=== PATIENT | male | born 1950 | race Caucasian/White ===

== ENCOUNTER → 2016-07-15 | Outpatient (CLI) | payer OTHER, MEDICAID | LOC: FIMAGING 11:39 | PROVIDERS: ATTEND Internal Medicine Cardiovascular Disease | DX: J44.9 Chronic obstructive pulmonary disease, unspecified (principal) ==

== ENCOUNTER → 2016-12-01 | Outpatient (CLI) | payer OTHER, MEDICAID | LOC: GIMAGING 11:57 | PROVIDERS: ATTEND Physician Assistant | DX: M17.11 Unilateral primary osteoarthritis, right knee (principal) | CPT/HCPCS: 73560-PO ==

== ENCOUNTER 2018-04-21 13:25 | Inpatient (IN) | payer OTHER, MEDICAID ==
[2018-04-21] MEDS ORDERED: ACETAMINOPHEN 325 MG TAB PO PRN (18:26)
[2018-04-21 19:20] LABS: PLATELET COUNT 148 10^3/uL (150-400)
--- NOTE | 2018-04-21 19:33 | GHP ---
[f rep st] HISTORY AND PHYSICAL CHIEF COMPLAINT: Passed out. HISTORY OF PRESENT ILLNESS: This is a 68-year-old male with history of mitral valve disease, AICD, r uptured AAA, NV, and CABG who was brought to the emergency department after his found him slumpe d over on the couch at 12:30 today. Patient does not recall what happened. His found him with his eyes rolled back in his head with a blue appearance. It took him approximately 5 minutes took co me to, at which time, he was confused and disoriented. There was no loss of control of his bowel or his bladder. He has had no previous episodes like this. PAST MEDICAL HISTORY: Ruptured triple AAA, Elizabeth, CABG, AICD placement, mitral valve disease, left leg ORIF. HOME MEDICATIONS: Are unavailable at this time of dictation. ALLERGIES: Penicillin. SOCIAL HISTORY: Patient lives in [place] with his . His primary care per provider is Dr. Delonte Mora. He still smokes 5 cigarettes per day. He denies any alcohol use. FAMILY HISTORY: Significant for lung cancer in his mother and NV in his father who at ag e 69. REVIEW OF SYSTEMS: Comprehensive 10-point review of systems was done and is negative, except for as mentioned in the HPI. PHYSICAL EXAM: VITAL SIGNS: Blood pressure 120/79, pulse 73, respiratory rate 15, O2 saturation 93% on room air, temperature afebrile. GENERAL: No acute distress. HEAD: Normocephalic, atraumatic. EYES: PERRLA. Sclerae anicteric. MOUTH: Moist mucous membranes. NECK: Supple. No lymphadenop athy. CARDIOVASCULAR: S1, S2. There is a systolic murmur. There is no JVD. There is no lower ext remity edema. PULMONARY: Lungs are clear. No wheezes, rales, or rhonchi. ABDOMEN: Soft, nontende r, nondistended. No guarding or rebound tenderness. Normoactive bowel sounds. EXTREMITIES: No clu bbing or cyanosis. NEURO: Cranial nerves 2 through 12 grossly intact. No focal motor or sensory de ficits. SKIN: Clear. No rashes. DIAGNOSTICS: WBC is 8.8, hemoglobin 13.7, hematocrit 42.1, platelets 148. Sodium 137, potassium 4.4 , chloride 103, CO2 26, BUN 15, creatinine 1.2 glucose 118. Troponin less than 0.012. EKG, which I visualized and personally interpreted, shows atrial paced rhythm. No acute ischemic argenis nges. Chest x-ray was done, but I was unable to view it at the time of this dictation since the PAC system is down. ASSESSMENT: This is a 68-year-old male with known mitral valve disease, coronary artery disease, sta tus post coronary artery bypass graft, and abdominal aortic aneurysm repair presenting with acute syn copal episode of unclear etiology. PLAN: The patient will be placed on observation where he will be monitored on telemetry. I have ask ed Cardiology to consult and interrogate his AICD, as well as obtain an echocardiogram to further janak luate his mitral valve. The patient requests to be DNR status. He may ultimately want to leave the hospital against medical advice. At the time of this dictation, he is currently discussing this with his who does not fe el comfortable taking him home. /[id number]/MODL
[2018-04-21 20:45] LABS: INR 1.09 (0.83-1.16); PROTIME(PATIENT) 13.7 SEC (12.0-15.0)
[2018-04-21] MEDS: oxyCODONE IR 5 MG TAB PO SCH (21:03)
[2018-04-21] MEDS: ATORVASTATIN CALCIUM 20 MG TAB PO SCH (21:04)
[2018-04-21] MEDS: GABAPENTIN 300 MG CAP PO SCH (21:04)
[2018-04-21] MEDS: hydrALAZINE 25 MG TAB PO SCH (21:13)
[2018-04-21 23:12] LABS: CREATINE KINASE 147 IU/L (0-224)
[2018-04-22] MEDS: oxyCODONE IR 5 MG TAB PO SCH ×5 (01:23→21:02)
[2018-04-22 04:37] LABS: PLATELET COUNT 126 10^3/uL (150-400)
--- NOTE | 2018-04-22 08:08 | EDPHY ---
H & P Stated Complaint: SYNCOPE Time Seen by Provider: 04/21/18 13:30 HPI/ROS: CHIEF COMPLAINT: Syncope HISTORY OF PRESENT ILLNESS: The patient presents to the ED after an episode of syncope at home. The patient reportedly was found by his slumped over unresponsive with blue lips at noon today. Patient had no antecedent chest pain , palpitations or shortness of breath. The patient reportedly came to fairly quickly although he did seem to be somewhat fatigued and confused after the event. The patient currently denies any acute numbness, weakness, headache, chest pain or difficulty breathing. The patient does have a history of an AICD. He does not have any sensation that he received shock from the device. Prior to the development of the symptoms the patient has been well. He is not had any recent fever, cough or dysuria. He is troubled by chronic neck pain which may have been acutely worse earlier today. REVIEW OF SYSTEMS: A comprehensive 10 point review of systems is otherwise negative aside from elements mentioned in the history of present illness. Source: Patient - Personal History Current Tetanus/Diphtheria Vaccine: Yes Current Tetanus Diphtheria and Acellular Pertussis (TDAP): Yes Tetanus Vaccine Date: 2008 - Medical/Surgical History Hx Asthma: No Hx Chronic Respiratory Disease: No Hx Diabetes: No Hx Cardiac Disease: Yes Hx Renal Disease: Yes Hx Cirrhosis: No Hx Alcoholism: No Hx HIV/AIDS: No Hx Splenectomy or Spleen Trauma: No Other PMH: medical Acute renal, HTN, ruptured Aortic aneuysm, [place] x3, CAD, mITRAL VALVE REGURGITATION, CARDIOMYOPATHY, iSChEMIC, Dyslipidemia. surgery Pacemaker, bypass surgery - Social History Smoking Status: Light smoker - Physical Exam Exam: General Appearance: Elderly male, somewhat deconditioned Eyes: Pupils equal and round no pallor or injection ENT, Mouth: Dry mucous membranes Respiratory: There are no retractions, lungs are clear to auscultation, permanent pacemaker on chest wall Cardiovascular: Regular rate and rhythm Gastrointestinal: Abdomen is soft and nontender, no masses, bowel sounds normal Neurological: A&O, normal motor function, normal sensory exam, normal cranial nerves Skin: Warm and dry, no rashes Musculoskeletal: Neck is supple nontender Extremities: symmetrical, full range of motion Psychiatric: Patient is oriented X 3, there is no agitation Constitutional: Initial Vital Signs Temperature (C) 36.5 C 04/21/18 13:25 Heart Rate 76 04/21/18 13:25 Respiratory Rate 15 04/21/18 13:25 Blood Pressure 120/79 04/21/18 13:25 O2 Sat (%) 93 04/21/18 13:25 O2 Delivery Mode Room Air Allergies/Adverse Reactions: Penicillins Allergy (Unknown, Verified 04/21/18 17:20) Hives lorazepam [From Ativan] Allergy (Verified 12/23/13 22:02) agitation Home Medications: Medication Instructions Recorded Atorvastatin Calcium 20 mg PO HS 04/21/18 DULoxetine [Cymbalta 60 MG (*)] 60 mg PO DAILY 04/21/18 Gabapentin [Neurontin 300 MG (*)] 600 mg PO HS 04/21/18 Herbals/Supplements -Info Only 1 ea PO DAILY 04/21/18 Nebivolol HCl [Bystolic 5 mg (*)] 5 mg PO DAILY 04/21/18 hydrALAZINE [Apresoline] 25 mg PO BID 04/21/18 oxyCODONE IR [Oxycodone Ir (*)] 10 mg PO Q4H 04/21/18 traZODone HCL [Trazodone HCl] 150 mg PO HS 04/21/18 Medical Decision Making - Diagnostics EKG Interpretation: EKG: Complete interpretation has been separately recorded in the [employer] archive. Summary impression: Av paced rhythm, no ischemic changes noted Imaging Results: Chest x-ray, two view: Images reviewed by myself, negative for cardiomegaly, heart failure or other acute abnormality. ED Course/Re-evaluation: The patient presents the emergency department after a episode of syncope at home which resulted in some unresponsiveness and reported facial cyanosis. The patient is neurologically intact in the emergency department. He is hemodynamically stable. He is essentially without complaints. Workup is unrevealing for evidence of an obvious arrhythmia or myocardial infarction. The patient has no clinical evidence of a stroke. The patient has a number of comorbidities. It is certainly possible he is had some arrhythmia. By report cardiology is following his pacemaker as his battery is nearing the end of its life. The patient will be admitted to the hospital for observation in the setting of his syncope in comorbidities. Consultation is made with the hospitalist service. I discussed the case with Dr. Montemayor who will admit the patient this evening. Differential Diagnosis: Differential diagnosis considered includes vasovagal episode, stroke, TIA, arrhythmia, myocardial infarction, severe metabolic derangement, renal failure, dehydration - Data Points Laboratory Results: Laboratory Results 04/21/18 13:47 04/21/18 13:47 04/21/18 13:47 Sodium 137 mEq/L mEq/L (135-145) Potassium 4.4 mEq/L mEq/L (3.5-5.2) Chloride 103 mEq/L mEq/L (97-110) Carbon Dioxide 26 mEq/l mEq/l (22-31) Anion Gap 8 mEq/L mEq/L (6-14) BUN 15 mg/dL mg/dL (7-23) Creatinine 1.2 mg/dL mg/dL (0.7-1.3) Estimated GFR 60 Glucose 118 mg/dL H mg/dL (70-100) Calcium 8.8 mg/dL mg/dL (8.5-10.4) Phosphorus 3.7 mg/dL mg/dL (2.5-4.5) Magnesium 2.3 mg/dL mg/dL (1.6-2.3) Lactate Dehydrogenase 492 IU/L IU/L (313-618) Creatine Kinase 147 IU/L IU/L (0-224) CK-MB (CK-2) Fraction 3.27 ng/mL ng/mL (0.00-4.55) Troponin I < 0.012 ng/mL ng/mL (0.000-0.034) Medications Given: Atorvastatin Calcium (Lipitor) 20 mg PO HS [facility] Stop: 10/18/18 20:59 Last Admin: 04/21/18 21:04 Dose: 20 mg Gabapentin (Neurontin) 600 mg PO HS [facility] Stop: 10/18/18 20:59 Last Admin: 04/21/18 21:04 Dose: 600 mg Hydralazine HCl (Apresoline) 25 mg PO BID [facility] Stop: 10/18/18 20:59 Last Admin: 04/21/18 21:13 Dose: Not Given Oxycodone HCl (Oxycodone Ir) 10 mg PO Q4H [facility] Stop: 05/01/18 19:59 Last Admin: 04/22/18 07:47 Dose: 10 mg Trazodone HCl (Trazodone) 150 mg PO HS [facility] Stop: 10/18/18 20:59 Last Admin: 04/21/18 21:04 Dose: 150 mg Departure - Departure Disposition: [facility] Inpatient Acute Clinical Impression: Syncope Condition: Good
[2018-04-22] MEDS: DULoxetine 60 MG CAP PO SCH (08:16)
[2018-04-22] MEDS: NEBIVOLOL HCL 5 MG TAB PO SCH (08:16)
[2018-04-22] MEDS: hydrALAZINE 25 MG TAB PO SCH (08:17)
[2018-04-22] MEDS ORDERED: Herbals/Supplements -Info Only PO SCH (09:00)
[2018-04-22] MEDS ORDERED: oxyCODONE IR 5 MG TAB PO ONE (11:13)
[2018-04-22] MEDS: ASPIRIN EC 81 MG TAB PO SCH (11:31)
--- NOTE | 2018-04-22 12:21 | PDCARPN ---
Cardiology Progress Note Chief Complaint: Syncope Assessment/Plan: Assessment: Jorge is a 68 y/o M with a history of CAD s/p CABG in , ICMP with EF of 30- 35%, s/p ICD, severe MR, CRI, and ruptured AAA s/p repair in 2012 admitted with syncope. His heard him breathing funny an found him slouched over on the couch not breathing. His called 911 who recommended he be moved to the floor. He then came to but was confused and combative. He denies any CP, SOB, or palpitations. He denies any loss of bowel or bladder function. A echo showed His ICD was interrogated and was negative for arrhythmias. Hydralazine was reduced from 50mg BID to 25mg BID three months ago. He then developed CP and therefore increased his dose back to 50mg BID. His last angiogram was in 2014 and showed a patent HERNANDEZ to the LAD with collaterals to the RCA. The LCX and two SVG were occluded. Plan: 1. Syncope- No arrhythmias by ICD interrogation but he did have ventricular triplets on tele. Trop was minimally elevated. Likely related to hypotension and poor perfusion related to severe MR. Plan to change Hydralazine to 10mg TID and consider MV clipping. 2. Severe MR- not a candidate for surgery but MV clipping maybe a option. Consult with Dr. Arriaga as out patient. 3. CAD- trop minimally elevated. He denies any symptoms of angina. Last cath in 2014 results outlined above. 4. hypotension- change Hydralazine. 5. ICMP with EF of 40-45%- continue Bystolic and Hydralazine. He did not tolerate a ARIADNA-I or ARB. Addendum: Pt became hypoxic, tachycardic, and had CP this afternoon. Tele showed diffuse ST depression suggestive of ischemia. Plan for nuc tomorrow and cath if nuc is abnormal. 04/22/18 17:41 Subjective: He is complaining of severe CP which was associated with hypoxia and tachycardia. Reviewed/Discussed With: hospitalist Objective: Vital Signs (8 Hrs) Temp Pulse Resp BP Pulse Ox 04/22/18 11:56 36.6 C 66 18 100/54 L 90 L 04/22/18 07:33 36.8 C 53 L 18 106/59 L 97 Intake/Output (24 Hrs) 04/21/18 04/22/18 04/23/18 05:59 05:59 05:59 Intake Total 300 Balance 300 Intake: Oral (ml) 300 Other: Weight 57.7 kg Result Diagrams: 04/22/18 03:14 04/22/18 03:14 Cardiac Labs: Cardiac Lab Results (72 Hrs) 04/22/18 04/21/18 03:14 20:27 Troponin I 0.020 0.048 H - Physical Exam Constitutional: cachectic Cardiovascular: regular rate and rhythm Respiratory: clear to auscultate bilat Skin: no edema Neurologic: AAOx3 ICD10 Worksheet Patient Problems: Problems Problem Status Onset Syncope Acute Hyperkalemia Acute Renal failure Acute
[2018-04-22] MEDS ORDERED: IOPAMIDOL (ISOVUE 370) 100 ML BTL IV ONE (14:12)
[2018-04-22] MEDS ORDERED: NS 500 ML IV ONE (15:04)
--- NOTE | 2018-04-22 15:44 | ECHO ---
[email or web address] [address] [address] [address]: [phone] Echocardiography Examination Transthoracic Name: KITA CHAN MR#: [id number] Study Date: 04/21/2018 Study Time: 04:02 PM Date of : 1950 Age: 68 year(s) Height: 167.6 cm (66 in.) Weight: 57.61 kg (127 lb.) BSA: 1.65 m2 Gender: Male Examination: Echo Contrast: Image Quality: Good Rhythm: Pacemaker rhythm Heart Rate: 60 bpm BP: 122 mmHg/66 mmHg Indication: Cardiac: syncope, Defibrillatior Procedure Staff Referring Physician: Ehs Manager: Alex Russell RDCS Reading Physician: Ferdinand Kelley MD Requesting Provider: Indication: Cardiac: syncope, Defibrillatior Measurements Chambers AV/MV Label Value Normal Value Label Value Normal Value EF lower range (%) 40 % AV PGmax 4 mmHg EF upper range (%) 45 % AV PGmean 2 mmHg IVSd, 2D 0.8 cm (0.6cm - 1.1cm) AV Vmax, Caliper 0.94 m/s IVSd, MM 0.9 cm (0.6cm - 0.9cm) LAN (continuity eq. 2.5 cm2 LVDd, 2D 6 cm (4.2cm - 5.9cm) Vmax) LVDd, MM 7.4 cm (4.2cm - 5.9cm) LAN D (continuity eq. 2.4 cm2 LVDs, 2D 4.8 cm (2.1cm - 4cm) VTI) LVDs, MM 5.9 cm (2cm - 3.8cm) MR (ERO) 0.15 cm2 LVEF visual 40 % MR PISA Alias V. 35.1 cm/s LVEF, 2D 41 % (54% - 74%) MR PISA Radius 0.6 cm LVEF, BP 41 % (55% - 70%) MR Reg. Fraction 10 % LVEF, MM 40 % (55% - 70%) MR Reg. Volume 32 ml LVEF, MOD2 44 % (55% - 70%) MR Vena Contracta 0.6 cm LVEF, MOD4 40 % (55% - 70%) MR Vmax 5.74 m/s LVOT PGmax 2 mmHg MR VTI 227 cm LVOT PGmean 1 mmHg MV A Vmax 0.84 m/s LVOT Vmax 0.69 m/s (0.7m/s - 1.1m/s) MV Alison 3.6 cm LVOT Vmean 0.42 m/s MV E' lateral 0.04 m/s LVOTd 2.1 cm (1.9cm - 2.1cm) MV E' mean 0.04 m/s LVPWd, 2D 1 cm (0.6cm - 1cm) MV E' septal 0.03 m/s Patient: KITA CHAN Study Date: 04/21/2018 Page 1 of 3 04:02 PM LVPWd, MM 1.1 cm (0.6cm - 1cm) MV E Vmax 1.02 m/s RVDd, 2D 1.9 cm (1.9cm - 3.8cm) MV E/A 1.21 TAPSE 2.4 cm MV E/E' lateral 29.1 LA Area, A2C 28.5 cm2 (0cm2 - 20cm2) MV E/E' mean 29.14 LA Volume, A2C 102 ml (18ml - 58ml) MV E/E' septal 32.7 (0.45 - 1.25) LA Volume, A4C 95 ml (16ml - 34ml) MV PGmax 5 mmHg LA Volume, BP 102 ml (18ml - 58ml) MV PGmean 2 mmHg LAESV index, MOD4 57.6 ml/m2 MV VTI 32.8 cm Additional Vessels MVA D (continuity eq.) 1.6 cm2 Label Value Normal Value TV/PV AoRoot, MM 3 cm (2.2cm - 3.7cm) Label Value Normal Value RA Pressure 5 mmHg RVSP 54 mmHg TR Pmax 49 mmHg TR Vmax 3.5 m/s PV PGmax 2 mmHg PV Vmax, Caliper 0.73 m/s (0.6m/s - 0.9m/s) Conclusions Left Ventricle: Left ventricle is mildly dilated. EF evaluated by fractional shortening (2D). The EF is visually estimated to be 40 %. EF range is estimated at 40 % - 45 %. Grade II Diastolic Dysfunction. Right Ventricle: There is a pacemaker lead noted in the right ventricle. Mitral Valve: Severe mitral regurgitation. There is mild mitral calcification. Tricuspid Valve: Moderate tricuspid regurgitation. Right Ventricular systolic pressure is measured at 54 mmHg. Pulmonary artery pressure moderately increased. Findings Left Ventricle: Left ventricle is mildly dilated. Moderately reduced systolic left ventricular function. EF evaluated by fractional shortening (2D). The EF is visually estimated to be 40 %. EF range is estimated at 40 % - 45 %. Left ventricle wall thickness is normal. Grade II Diastolic Dysfunction. No LV hypertrophy. There is basilar to mid inferoslateral and inferior to inferoseptal hypokinesis. Right Ventricle: Normal size right ventricle. Right ventricular systolic function is normal. There is a pacemaker lead noted in the right ventricle. Left Atrium: The left atrium is severely dilated. Right Atrium: The right atrium is moderately dilated. Patient: KITA CHAN Study Date: 04/21/2018 Page 2 of 3 04:02 PM Mitral Valve: Severe mitral regurgitation. No mitral valve stenosis. There is mild mitral calcification. Aortic Valve: There is no aortic stenosis. The aortic valve is trileaflet. Tricuspid Valve: Moderate tricuspid regurgitation. Right Ventricular systolic pressure is measured at 54 mmHg. Pulmonary artery pressure moderately increased. Pulmonic Valve: No pulmonic valve regurgitation is evident. Aorta: The aortic root size in M-mode measures 3.0 cm. In the subcostal view the AAA repair graft is noted. Aorta Measurements AoRoot, MM is 3.0 cm. Exam Details Procedure Ordered: Echo Procedure Status: Routine study Image Quality: Good Facility Location: Cardiac Echo 1 (No Signature Object) Patient: KITA CHAN Study Date: 04/21/2018 Page 3 of 3 04:02 PM [id number]
[2018-04-22] MEDS ORDERED: NS 1,000 ML IV SCH (16:15)
--- NOTE | 2018-04-22 16:22 | ASMTCMCOM ---
CM Note CM Note Notes: 04/22/2018 Case Management Note Pt admitted for syncope and ftt. Discussed during rounds. Discussed palliative care with patient and friend Kathleen [phone] and [phone]. Both agreeable to referral to [facility]. Faxed referral via [facility]. Requested visit tomorrow in the hospital. Pt having EKG this afternoon. PT OT evals pending. Case Management d/c poc: to be determined. Case Management to follow. Date Signed: 04/22/2018 04:22 PM Electronically Signed By:Marcie Britton RN
--- NOTE | 2018-04-22 17:50 | HOSPPROG ---
Hospitalist Progress Note Assessment/Plan: * Acute respiratory failure -79% on RA, sats low 80s on 10L mask -transient spells - suspect cardiac ischemia - new ST depressions on tele -CTA negative for PE * Hypotension SBP 70s -lactate 3.1 -gentle IVF * Severe CAD s/p CABG - suspect unstable angina -d/w Chely Gray who has reviewed previous cath with Dr. Kelley -severe disease with limited options -check nuc stress test -consider repeat cath, but last cath not optimistic -ongoing angina - responds to hydralazine except hypotension limiting -if ischemic spells continue and no further options, then consider hospice * Syncope - due to above -AICD interrogation negative * COPD/tobacco dependence -nicotine patch -no evidence for COPD exacerbation * Chronic systolic CHF - EF 40% - with AICD -intolerant of ACEI/ARB -hydralazine for afterload reduction -change to 10mg PO tid due to hypotension * Severe MR -consider MV clip CC time - 45 minutes Subjective: came back from CT chest with SBP in 70s, HR 114 and low sats 80% on face mask. [place] terrible. CP/SOB Objective: Vital Signs Temp Pulse Resp BP Pulse Ox 36.4 C 85 20 110/60 91 L 04/22/18 15:27 04/22/18 15:27 04/22/18 15:27 04/22/18 15:27 04/22/18 15:27 PT 13.7 SEC (12.0-15.0) 04/21/18 20:27 INR 1.09 (0.83-1.16) 04/21/18 20:27 Laboratory Tests 04/21/18 04/21/18 04/22/18 13:47 20:27 03:14 D-Dimer VBG Lactic Acid Troponin I < 0.012 0.048 H 0.020 04/22/18 04/22/18 04/22/18 11:53 15:20 15:20 D-Dimer 7.21 H VBG Lactic Acid 3.1 H Troponin I < 0.012 tele reviewed - ST depression d/w cardiology at length regarding poor options for CAD tx ECHO - ef 40% CTA chest - no PE - Physical Exam Constitutional: uncomfortable Cardiovascular: systolic murmur, tachycardia, No edema Respiratory: no rales or rhonchi, clear to auscultation, respiratory distress Gastrointestinal: normoactive bowel sounds, soft, non-tender abdomen, no palpable masses Skin: no rashes or abrasions, no fluctuance, no induration Neurologic: AAOx3, sensation intact bilaterally Psychiatric: interacting appropriately, not anxious, not encephalopathic, thought process linear ICD10 Worksheet Patient Problems: Problems Problem Status Onset Syncope Acute Hyperkalemia Acute Renal failure Acute
[2018-04-22] MEDS: GABAPENTIN 300 MG CAP PO SCH (21:01)
[2018-04-22] MEDS: ATORVASTATIN CALCIUM 20 MG TAB PO SCH (21:03)
[2018-04-22] MEDS: hydrALAZINE 10 MG TAB PO SCH (21:03)
[2018-04-22] MEDS: guaiFENesin 600 MG TAB.ER PO SCH (23:21)
[2018-04-23 07:58] LABS: PLATELET COUNT 118 10^3/uL (150-400)
[2018-04-23] MEDS: DULoxetine 60 MG CAP PO SCH (08:11)
[2018-04-23] MEDS: guaiFENesin 600 MG TAB.ER PO SCH ×2 (08:11→22:15)
[2018-04-23] MEDS: oxyCODONE IR 5 MG TAB PO SCH ×3 (08:11→22:16)
[2018-04-23] MEDS: hydrALAZINE 10 MG TAB PO SCH ×3 (08:12→22:16)
[2018-04-23] MEDS: ASPIRIN EC 81 MG TAB PO SCH (08:23)
[2018-04-23] MEDS: ENOXAPARIN 40 MG/0.4 ML SYR SC SCH (08:23)
[2018-04-23] MEDS ORDERED: oxyCODONE IR 5 MG TAB PO SCH (09:00)
[2018-04-23] MEDS ORDERED: REGADENOSON 0.4 MG/5 ML SYR IVP ONE (10:39)
[2018-04-23] MEDS ORDERED: IPRATROPIUM/ALBUTEROL 3 ML DEYVIAL IH PRN (11:24)
[2018-04-23] MEDS: NICOTINE 14 MG/24 HR PATCH TD SCH (12:32)
[2018-04-23] MEDS: NEBIVOLOL HCL 5 MG TAB PO SCH (12:32)
[2018-04-23] MEDS ORDERED: NITROGLYCERIN 0.4 MG BTL SL PRN (13:41)
[2018-04-23] MEDS ORDERED: FAMOTIDINE 20 MG TAB PO ONE (13:41)
[2018-04-23] MEDS ORDERED: diphenhydrAMINE 25 MG CAP PO ONE (13:41)
[2018-04-23] MEDS ORDERED: NS 1,000 ML IV SCH ×2 (13:45→16:00)
--- NOTE | 2018-04-23 13:45 | PDHPUP ---
History & Physical Update H&P update statement: This history and physical update is based on an assessment of the patient which was completed after admission or registration (within 24 hours), but prior to the surgery/procedure. H&P update: H&P reviewed & patient examined, changes noted H&P changes: Nuclear stress test abnormal and suggestive of high anterolateral ischemia.
--- NOTE | 2018-04-23 13:47 | PDPROPOC ---
Sedation Plan of Care Sedation Plan of Care: vital signs stable, mental status noted, patient educated of risks, benefits, alternatives, patient can tolerate sedation ASA Classification: ASA 3 Planned drugs: fentanyl, midazolam Mallampati Score: Class 2 Mallampati Reference Image: Patient passed 3-3-2 rule?: Yes
[2018-04-23] MEDS ORDERED: fentaNYL 100 MCG/2 ML INJ ONE (13:49)
[2018-04-23] MEDS ORDERED: IOPAMIDOL (ISOVUE-370) 150 ML BTL IV ONE (13:50)
[2018-04-23] MEDS ORDERED: LIDOCAINE 1% 300 MG/30 ML SDV ONE (13:50)
[2018-04-23] MEDS ORDERED: MIDAZOLAM 2 MG/2 ML VIAL ONE (13:50)
[2018-04-23] MEDS: FLUTICASONE/SALMETER 250/50MCG DISKUS IH SCH ×2 (13:51→20:56)
--- NOTE | 2018-04-23 14:42 | CPEKG ---
Test Reason : OPEN Blood Pressure : / mmHG Vent. Rate : 070 BPM Atrial Rate : 071 BPM P-R Int : 129 ms QRS Dur : 101 ms QT Int : 453 ms P-R-T Axes : 071 088 -51 degrees QTc Int : 489 ms Sinus rhythm Multiple premature complexes, vent & supraven Inferior infarct, age indeterminate Confirmed by Ferdinand Kelley ([id number]) on 04/23/2018 2:41:27 PM Referred By: Teddy Montemayor Confirmed By:Ferdinand Kelley
--- NOTE | 2018-04-23 14:48 | CPEKG ---
Test Reason : OPEN Blood Pressure : / mmHG Vent. Rate : 060 BPM Atrial Rate : 060 BPM P-R Int : 127 ms QRS Dur : 105 ms QT Int : 457 ms P-R-T Axes : 041 086 -35 degrees QTc Int : 457 ms Atrial-paced rhythm ventricular sensed rhythm Inferior infarct, age indeterminate Confirmed by Ferdinand Kelley ([id number]) on 04/23/2018 2:47:40 PM Referred By: Teddy Montemayor Confirmed By:Ferdinand Kelley
--- NOTE | 2018-04-23 15:04 | PDDXCAT ---
Diagnostic Cath Note - . Date: 04/23/18 Manager Bank: Warren Indication: other (Syncope and abnormal stress test ) - Procedure Access: right groin Procedure: left heart catheterization, coronary angiography, left ventriculogram , vein graft injection, HERNANDEZ injection - Materials Left Heart Cath size: 6F Left Heart Cath materials: JL4.0, JR4.0, pigtail - Findings-Left Heart Catheterization LM: The left main is 8mm in size and bifurcates into an LAD and Circumflex system. LAD: The left anterior descending is 4mm in size. There is a long tubular 75-80 % stenosis in the proximal LAD prior to a diagonal and septal takeoff, both of which give important collaterals to the distal right coronary artery and circumflex obtuse marginal system. LCX: The left cicumflex is 2mm in size. The vessel gives rise to a high OM vessel which is 100% occluded in its distal third. There is ALBA 0 flow in the proximal circumflex distal to the OM takeoff and in the principal OM in its distal third. left to left collaterals from the diagonal provide weak collateral flow to the distal 2 obtuse marginal vessels. RCA: The [place] right coronary artery is completely occluded proximally and is collateralized to via 2 robust septal perforators off the LAD. rSVG: THE SVG to the RCA and the SVG to the circumflex OM are both totally occluded. HERNANDEZ: The HERNANDEZ to the LAD is widely patent. There are weak left to left collateral circulation to the distal circumflex OM and distal PDA of the RCA. EDP: 21mmHg LVEF: 15% Wall motion: On the LV gram there is severely decreased LV systolic function. The EF is %15. There is distal anterior wall hypokinesis. 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 There is 2+ mitral regurgitation on pressurized injection. The visualized portion of the thoracic aortic valve reveals three sinuses of valsalva most consistent with a trileaflet valve. There is no gradient on pullback across the aortic valve. - Findings-Right Heart Catheterization AO: 140/66/83 Complications: NONE Estimated blood loss: <50ml Closure method: Angioseal Assessment: The patient has severe skull valley vessel coronary disease with a patent HERNANDEZ to the LAD. The patient's [place] right coronary system is completely occluded as well as the SVG to the RCA and the SVG to the circumflex obtuse marginal. There is a long tubular stenosis of 75-80% stenosis in the LAD. The patient has ischemic cardiomyopathy with a severely decreased ejection fraction measuring less than prevously estimated on nuclear imaging. the nuclear imaging QPS was estimating where the mary are located and those were incorrect because of scarring. This patient has end stage ischemic cardiomyopathy with a low ejection fraction and hypotension with anginga pectoris at heart rates above 85 beats per minute. The anteolateral region of ischemia is likely from a high diagonal blood vessel that is not grafted. We proceeded with palliative angioplasty and stent of the LAD in order to improve blood flow to the principal diagonal. Plan: Aspirin 81mg along with Plavix 75mg daily should be continued for at least 1 year following drug eluting stent implantation. No elective surgery for the first 3 months. Decisions to stop dual antiplatelet therapy before 1 year should involve our office [facility] . Intervention: A 6 [place] EBU 3.5 guiding catheter was used for guide catheter support. A 0.014 " 180 cm Intuition Wire was advanced down the LAD proper under direct fluoroscopic and angiographic guidance. A 3.0 x 10mm [place] balloon was deployed at 8 jono for 40 seconds, then inflated at 7 jono for 27 seconds, and the final inflation was at 7 jono for 27 seconds. A 0.014" 180cm Intuition Wire was advanced down the guiding catheter into the first diagonal. A 3.25 x 20 Emerge balloon was then advanced down the second intuition wire in the diagonal and was deployed at the ostial of the diagonal at 6atm for 10 seconds, and inflated at 10 jono for 5 seconds. The lesion in question was stented with a 3 x 24mm Synergy drug eluting stent. The stent balloon was deployed at 6 jono for 22 seconds, and then inflated at 14 jono for 22 seconds. There was 10% residual post stent implantation with ALBA III flow pre and post stent implantation. Patient Problems: Problems Problem Status Onset Syncope Acute Hyperkalemia Acute Renal failure Acute
[2018-04-23] MEDS ORDERED: BIVALIRUDIN 250 MG/5 ML VIAL IV ONE (15:22)
[2018-04-23] MEDS ORDERED: HYDROCODONE/APAP 5/325 TAB PO PRN (15:52)
[2018-04-23] MEDS ORDERED: ONDANSETRON 4 MG/2 ML VIAL IVP PRN (15:52)
[2018-04-23] MEDS ORDERED: OXYCODONE/APAP 5/325 TAB PO PRN (15:52)
[2018-04-23] MEDS ORDERED: CLOPIDOGREL BISULFATE 75 MG TAB PO ONE (15:52)
[2018-04-23] MEDS ORDERED: ATROPINE SULFATE 1 MG/10 ML SYR IVP PRN (15:52)
[2018-04-23] MEDS ORDERED: CLOPIDOGREL BISULFATE 75 MG TAB ONE (15:56)
--- NOTE | 2018-04-23 16:51 | HOSPPROG ---
Hospitalist Progress Note Assessment/Plan: * Unstable angina -s/p stent LAD -ASA/Plavix * CAD/CABG -patent HERNANDEZ to LAD, but other 2 grafts are down * Chronic systolic CHF - EF 15% - due to ischemic cardiomyopathy -intolerant of ACEI/ARB -hydralazine for afterload reduction - change to 10mg tid for hypotension -s/p AICD * Acute respiratory failure - improved -suspect due to myocardial stunning from severe ischemia -CTA negative for PE * Hypotension SBP 70s -lactate 3.1 - resolved -suspect cardiogenic * COPD/tobacco dependence -nicotine patch -no evidence for COPD exacerbation * Severe MR -consider MV clip Subjective: No further events Objective: Vital Signs Temp Pulse Resp BP Pulse Ox 36.5 C 65 16 124/70 H 92 04/23/18 12:00 04/23/18 13:30 04/23/18 12:00 04/23/18 12:32 04/23/18 13:30 Microbiology 04/22/18 16:42 Respiratory Panel (PCR) - Final Nasal, Sinus - [place] Viral Transport No Organism Detected By Pcr Laboratory Results 04/23/18 07:46 04/23/18 07:46 04/22/18 04/23/18 04/24/18 05:59 05:59 05:59 Intake Total 1248 Output Total 1000 Balance 1248 -1000 PT 13.7 SEC (12.0-15.0) 04/21/18 20:27 INR 1.09 (0.83-1.16) 04/21/18 20:27 d/w Dr. Kelley regarding high risk cath options nuc stress test - very abnormal, wall motion abnormality, reduced EF - Physical Exam Constitutional: no apparent distress, appears nourished, not in pain Cardiovascular: regular rate and rhythym, no murmur, rub, or gallop Respiratory: no respiratory distress, no rales or rhonchi, clear to auscultation Gastrointestinal: normoactive bowel sounds, soft, non-tender abdomen, no palpable masses Skin: no rashes or abrasions, no fluctuance, no induration Neurologic: AAOx3, sensation intact bilaterally Psychiatric: interacting appropriately, not anxious, not encephalopathic, thought process linear ICD10 Worksheet Patient Problems: Problems Problem Status Onset Hyperkalemia Acute Renal failure Acute Syncope Acute
--- NOTE | 2018-04-23 18:54 | CPEKG ---
Test Reason : OPEN Blood Pressure : / mmHG Vent. Rate : 060 BPM Atrial Rate : 060 BPM P-R Int : 120 ms QRS Dur : 114 ms QT Int : 455 ms P-R-T Axes : 078 071 -51 degrees QTc Int : 455 ms Atrial-paced rhythm Incomplete right bundle branch block Inferior infarct, age indeterminate Confirmed by Ferdinand Kelley ([id number]) on 04/23/2018 6:54:04 PM Referred By: Teddy Montemayor Confirmed By:Ferdinand Kelley
[2018-04-23] MEDS: ATORVASTATIN CALCIUM 20 MG TAB PO SCH (22:15)
[2018-04-23] MEDS: GABAPENTIN 300 MG CAP PO SCH (22:16)
[2018-04-24 04:25] LABS: PLATELET COUNT 117 10^3/uL (150-400)
--- NOTE | 2018-04-24 08:18 | PDMN ---
Medical Necessity Medical necessity: Change to IP, as of 04/22/18, per MD & MCG M-40; los >2 mn for ongoing management of unstable angina w/acute respiratory failure & hypotension s/p stent; requiring further monitoring & med management; hx CHF, severe MR, COPD, CAD/CABG
[2018-04-24] MEDS ORDERED: CLOPIDOGREL BISULFATE 75 MG TAB PO SCH (09:00)
[2018-04-24] MEDS ORDERED: oxyCODONE IR 5 MG TAB PO SCH (09:00)
--- NOTE | 2018-04-24 09:02 | SOAPPROG ---
[facility] Progress Note Assessment/Plan: Assessment:1.cad..s/p lad stenting...doing well..tolerating plavix which he will need to take for the next year with asa...okto d/c home later today if he is stable and able to care for himself o/w can stay until tomorrow..pt should f/ u with dr coronado as out pt for med adjustments 2.cm..aicd with normal function and no therapy Plan:1. d/c later if stable 04/24/18 09:02 04/24/18 09:03 04/24/18 09:06 Subjective: pt doing well post stenting of diagonal from yesterday..cv c/o...crest ok and cath site looks good strong pedal pulse Objective: Vital Signs Temp Pulse Resp BP Pulse Ox 36.5 C 71 12 120/62 94 04/24/18 03:36 04/24/18 03:36 04/24/18 03:36 04/24/18 03:36 04/24/18 03:36 Laboratory Results 04/24/18 03:10 04/24/18 03:10 04/23/18 04/24/18 04/25/18 05:59 05:59 05:59 Intake Total 1248 1300 Output Total 1550 Balance 1248 -250 PT 13.7 SEC (12.0-15.0) 04/21/18 20:27 INR 1.09 (0.83-1.16) 04/21/18 20:27 Physical Exam - Physical Exam Respiratory: lungs clear Cardiac/Chest: regular rate, rhythm, systolic murmur Peripheral Pulses: 3+: dorsalis-pedis (R) (r groin cath site no pain) ICD10 Worksheet Patient Problems: Problems Problem Status Onset Hyperkalemia Acute Renal failure Acute Syncope Acute
[2018-04-24] MEDS: FLUTICASONE/SALMETER 250/50MCG DISKUS IH SCH (09:29)
[2018-04-24] MEDS: ASPIRIN EC 81 MG TAB PO SCH (09:36)
[2018-04-24] MEDS: guaiFENesin 600 MG TAB.ER PO SCH (09:36)
[2018-04-24] MEDS: DULoxetine 60 MG CAP PO SCH (09:36)
[2018-04-24] MEDS: oxyCODONE IR 5 MG TAB PO SCH (09:37)
[2018-04-24] MEDS: NEBIVOLOL HCL 5 MG TAB PO SCH (09:38)
[2018-04-24] MEDS: hydrALAZINE 10 MG TAB PO SCH (09:41)
[2018-04-24] MEDS: ENOXAPARIN 40 MG/0.4 ML SYR SC SCH (09:41)
[2018-04-24] MEDS: NICOTINE 14 MG/24 HR PATCH TD SCH (09:47)
--- NOTE | 2018-04-24 11:57 | PDIAF ---
- Diagnosis Diagnosis: CHF, CAD s/p stent Code Status: Do Not Resuscitate - Medication Management Discharge Medications: electronically signed and located in the Home Medication List. - Orders Services needed: Home Care, Registered Nurse, Physical Therapy, Occupational Therapy Home Care Face to Face: I certify that this patient was under my care and that I had the required [id number] encounter meeting the encounter requirements on the discharge day. My findings support the fact that the patient is homebound as defined in Home Care Face to Face Continued: CMS Chapter 7 Medicare Benefits Manual 30.1.1 , The condition of the patient is such that there exists a normal inability to leave home and consequently, leaving home would require a considerable and taxing effort. Diet Recommendation: no restrictions on diet Additional Instructions: Must stay on Plavix for 1 year - Follow Up Care Current Providers and Referrals: Andrey Mora DO [Primary Care Provider] - Yvonne Avila MD [Medical Doctor] -
--- NOTE | 2018-04-24 12:27 | ASMTLACE ---
LACE Length of stay for Answers: 1 day current admission Acuity / Level of Answers: Yes Care: Did the patient have an inpatient admission? Comorbidities - select Answers: Mild liver or renal all that apply disease Previous myocardial infarction Other Notes: Mitral valve disease; AICD; CABG # of Emergency department Answers: 1-2 visits in the last 6 months Score: 9 Date Signed: 04/24/2018 12:27 PM Electronically Signed By:Marcie Britton RN
--- NOTE | 2018-04-24 12:32 | ASDISCHSUM ---
Discharge Information Plan Status:Home with No Needs Medically Cleared to Leave:04/24/2018 Discharge Date:04/24/2018 CM D/C Disposition:Home, Routine, Self-Care ADT D/C Disposition:Home Health Service Projected Discharge Date:04/23/2018 11:00 AM Transportation at D/C:Friend Discharge Delay Reason: Follow-Up Date:04/23/2018 11:00 AM Discharge Slot: Final Diagnosis: Placement Information Referral Type:Palliative Care Referral ID:[id number] Provider Name:[facility] Address 1:[address] Phone Number: Address 2: Fax Number: City:[place] Selection Factors: State:[place] Patient Contact Information Contact Name:MICAH Relationship:Friend Address: Work Phone: City: [facility] Phone: [facility] Code: Email: Financial Information Financial Class:Medicare Primary Plan Desc:MEDICARE INPATIENT Primary Plan Number:[id number] Secondary Plan Desc:MED[place] Secondary Plan Number:[id number] Assessment Information LACE LACE Length of stay for Answers: 1 day current admission Acuity / Level of Answers: Yes Care: Did the patient have an inpatient admission? Comorbidities - select Answers: Mild liver or renal all that apply disease Previous myocardial infarction Other Notes: Mitral valve disease; AICD; CABG # of Emergency department Answers: 1-2 visits in the last 6 months Score: 9 Date Signed: 04/24/2018 12:27 PM Electronically Signed By:Marcie Britton RN [facility] Progress Note CM Note CM Note Notes: 04/22/2018 Case Management Note Pt admitted for syncope and ftt. Discussed during rounds. Discussed palliative care with patient and friend Kathleen [phone] and [phone]. Both agreeable to referral to [facility]. Faxed referral via [employer]. Requested visit tomorrow in the hospital. Pt having EKG this afternoon. PT OT moriah pending. Case Management d/c poc: to be determined. Case Management to follow. Date Signed: 04/22/2018 04:22 PM Electronically Signed By:Marcie Britton RN Case Management Discharge Plan Note Case Management Discharge Discharge Order Complete? Answers: Yes Patient to Obtain Answers: via Family Medications Transportation Arranged Answers: Family/Friends Faxed Final Orders Answers: Yes Notes: [facility] Transfer Answers: Yes Notes: [facility] Report Printed & Faxed to Receiving Agency Discharge Comments Notes: 04/24/2018 Case Management Note IM signed. Met w/pt and friend Kathleen to discuss d/c needs. Pt refused home care d/t home bound status requirement. Pt has follow up with PCP in early May. Encouraged pt to consider calling PCP to inquire if moving appointment earlier would be appropriate. Pt has follow up with Yvonne Avila. Pt will open with [facility]. Faxed final orders and notified of d/c. Case Management d/c poc: home with [facility] with follow up as directed. Date Signed: 04/24/2018 12:29 PM Electronically Signed By:Marcie Britton RN Intervention Information Intervention Type:*Incorrect Registration Date of Service:04/21/2018 08:57 AM Patient Type:Inpatient Staff Member:FEDE Jeffers, Bettina Hours: Discipline: Severity: Comment: Intervention Type:*FREDERICK-Signed Date of Service:04/22/2018 02:21 PM Patient Type:Observation Staff Member:Tiarra Navarrete Hours: Discipline: Severity: Comment: Intervention Type:*IM-Signed Date of Service:04/24/2018 12:22 PM Patient Type:Inpatient Staff Member:FEDE Britton, Marcie Hours: Discipline: Severity: Comment:
[2018-04-24 14:21] VITALS: BP 97/54
--- NOTE | 2018-04-24 22:03 | GDS ---
[f rep st] DISCHARGE SUMMARY DISCHARGE DIAGNOSES: 1. Unstable angina, status post stent to the left anterior descending artery and diagonal. 2. Coronary artery disease, status post previous coronary artery bypass graft with 2 out of 3 of his previous grafts down. 3. Chronic systolic congestive heart failure, ejection fraction of 15%, due to ischemic cardiomyopat hy, status post automatic implantable cardioverter-defibrillator. 4. Acute respiratory failure due to ischemic attacks. 5. Hypotension due to cardiac ischemic attacks. 6. Lactic acidosis. 7. Chronic obstructive pulmonary disease and tobacco dependence. 8. Severe mitral regurgitation. HISTORY: The patient is a 68-year-old male with a severe coronary artery disease history. He previo usly had a CABG. Two out of 3 of his grafts are down. He has a patent HERNANDEZ to the LAD. He presente d with a syncopal event. His AICD was interrogated, and there were no events. He was found by his w poonam cyanotic and blue and came to shortly thereafter. He had another event here in the hospital that was associated with some significant ischemic changes on telemetry. We suspect that these events we re an anginal equivalent. He was suffering from unstable angina. He had a nuclear medicine stress t est that was severely abnormal. He underwent cardiac catheterization and had a stent placed to his n ative LAD and diagonal vessel which had a significant lesion with the hopes that this will improve [facility] situation. He will continue on aspirin and Plavix for 1 year. It was revealed during cardiac cath eterization that his EF is only 15%. He was intolerant of ARIADNA inhibitors and ARB in the past. He is on hydralazine for afterload reduction, but blood pressures dipped down very low, so he was changed to [address] angiogram of the chest was negative for PE. Again we do believe his acute respiratory failure kevin nts were due to myocardial stunning from severe global ischemia. The event that we witnessed here in the hospital, he was saturating in the low 80 percents saturations on a 10 L mask. At that time, [facility] lactate was 3.1, his systolic blood pressure was in the 70s. He subsequently rebounded. This occu rred prior to cardiac catheterization. We are hopeful stenting of the above vessel will prevent thes e future cardiogenic events. He does have COPD and continues to smoke. At discharge, his room air saturation is 91% to 92% on misbah m air. He was started on Advair. He also has severe mitral regurgitation. Cardiology is considering a mitral valve clip. This can be evaluated as an outpatient. He follows closely with Dr. Avila. DISCHARGE MEDICATIONS: Please see computerized record for full detailed list. NEW MEDICATIONS: 1. Aspirin, he takes 162 mg p.o. daily. 2. Plavix 75 mg p.o. daily. 3. Advair 250/50, one puff b.i.d. 4. Hydralazine changed to 10 mg p.o. t.i.d. ADDITIONAL DISCHARGE INSTRUCTIONS: 1. Patient was educated regarding need for Plavix continuously for 1 year. 2. Follow up with Dr. Yvonne Avila at [facility]. Greater than 30 minutes of time was spent arranging this discharge. Patient was seen and examined by me on the day of discharge. /[id number]/MODL
== END 2018-04-24 13:12 | disposition home health service (06) | DRG 246 ==
LOC: F2W 14:40 → INTOOBSV 14:40 → F2W 19:49 → OBSVTOIN 04-22 15:04
PROVIDERS: ADMIT Family Medicine; ATTEND Family Medicine
DX: I25.110 Atherosclerotic heart disease of native coronary artery with unstable angina pectoris (principal); I25.710 Atherosclerosis of autologous vein coronary artery bypass graft(s) with unstable angina pectoris; I25.82 Chronic total occlusion of coronary artery; J96.00 Acute respiratory failure, unspecified whether with hypoxia or hypercapnia; I11.0 Hypertensive heart disease with heart failure; I50.22 Chronic systolic (congestive) heart failure; E87.2 Acidosis; I95.9 Hypotension, unspecified; I34.0 Nonrheumatic mitral (valve) insufficiency; J44.9 Chronic obstructive pulmonary disease, unspecified; I25.2 Old myocardial infarction; E78.5 Hyperlipidemia, unspecified; Z95.1 Presence of aortocoronary bypass graft; Z95.0 Presence of cardiac pacemaker; Z66 Do not resuscitate; F17.210 Nicotine dependence, cigarettes, uncomplicated
CPT/HCPCS: 97116-GP; 97161-GP; 97166-GO; A9500; C1725; C1769; C1874; C1887; C9600; G0378; J0583; J1644; J1650; J2250; J2785; J3010; Q9967

== ENCOUNTER 2018-06-03 12:33 | Day surgery (SDC) | payer OTHER, MEDICAID ==
[2018-06-03] MEDS ORDERED: MIDAZOLAM 2 MG/2 ML VIAL IVP ONE (12:39)
[2018-06-03] MEDS ORDERED: fentaNYL 100 MCG/2 ML INJ IVP ONE (12:39)
[2018-06-03] MEDS ORDERED: BENZOCAINE UNIT DOSE SPRAY HURRICAINE MM ONE (12:39)
[2018-06-03] MEDS ORDERED: NS 500 ML IV ONE (12:39)
[2018-06-03] MEDS ORDERED: PROPOFOL 200 MG/20 ML VIAL ONE ×2 (13:56)
[2018-06-03] MEDS ORDERED: LIDOCAINE 2% 100 MG/5 ML SYR ONE (13:56)
--- NOTE | 2018-06-03 14:00 | PDHPUP ---
History & Physical Update H&P update statement: This history and physical update is based on an assessment of the patient which was completed after admission or registration (within 24 hours), but prior to the surgery/procedure. H&P update: H&P reviewed & patient examined, no change in patient's condition since H&P completed
--- NOTE | 2018-06-03 14:01 | PDANEPAE ---
ANE Past Medical History - Cardiovascular History Hx Hypertension: Yes Hx Arrhythmias: Yes Hx Chest Pain: Yes Hx Coronary Artery / Peripheral Vascular Disease: Yes Hx CHF / Valvular Disease: Yes Hx Palpitations: No - Pulmonary History Hx COPD: No Hx Asthma/Reactive Airway Disease: No Hx Recent Upper Respiratory Infection: No Hx Oxygen in Use at Home: No Hx Sleep Apnea: Yes - Endocrine History Hx Diabetes: No Hypothyroid: No Hyperthyroid: No Obesity: no - Chronic Pain History Chronic Pain: Yes ANE Review of Systems Review of Systems: - Exercise capacity Exercise capacity: >=4 METS ANE Patient History - Allergies Allergies/Adverse Reactions: Penicillins Allergy (Unknown, Verified 04/21/18 17:20) Hives lorazepam [From Ativan] Allergy (Verified 12/23/13 22:02) agitation - Home Medications Home Medications: Atorvastatin Calcium 20 mg PO HS 04/21/18 [Last Taken 06/02/18 22:00] DULoxetine [Cymbalta 60 MG (*)] 60 mg PO DAILY 04/21/18 [Last Taken 06/02/18 11: 00] Gabapentin [Neurontin 300 MG (*)] 600 mg PO HS 04/21/18 [Last Taken 06/02/18 22: 00] Herbals/Supplements -Info Only 1 ea PO DAILY 04/21/18 [Last Taken 06/02/18 11:00 ] Nebivolol HCl [Bystolic 5 mg (*)] 5 mg PO DAILY 04/21/18 [Last Taken 06/02/18 11 :00] traZODone HCL [Trazodone HCl] 150 mg PO HS 04/21/18 [Last Taken 06/02/18 22:00] oxyCODONE HCL [Oxycodone HCl] 10 mg PO Q4 04/23/18 [Last Taken 06/02/18 22:00] Cymbalta 30 mg PO DAILY 06/03/18 [Last Taken 06/02/18 11:00] Nitrostat 1 tab SL 06/03/18 [Last Taken Unknown] - Anes Hx Anes Hx: no prior problems - Smoking Hx Smoking Status: Light smoker - Family Anes Hx Family Anes Hx: neg - N/A ANE Labs/Vital Signs - Vital Signs Height: 168 cm Weight: 56.7 kg ANE Physical Exam - Airway Neck exam: FROM Mallampati Score: Class 2 Mouth exam: normal dental/mouth exam - Pulmonary Pulmonary: no respiratory distress, no rales or rhonchi, clear to auscultation - Cardiovascular Cardiovascular: regular rate and rhythym - ASA Status ASA Status: III ANE Anesthesia Plan Anesthesia Plan: MAC Total IV Anesthesia: Yes
--- NOTE | 2018-06-03 19:01 | ECHO ---
[email or web address] [address] [address] Main: [phone] Echocardiography Examination Transesophageal Name: KITA CHAN MR#: [id number] Study Date: 06/03/2018 Study Time: 01:59 PM Date of : 1950 Age: 68 year(s) Height: ( ) Weight: ( ) BSA: Gender: Male Examination: NEVILLE Contrast: Image Quality: Rhythm: Pacemaker rhythm Heart Rate: 62 bpm BP: 122 mmHg/67 mmHg Indication: Pre Mitral Clip Procedure Staff Referring Physician: Clinical Microbiologist: Alex Russell RDCS Reading Physician: Yvonne Avila MD Requesting Provider: Ordering Physician: Yvonne Avila MD Indication: Pre Mitral Clip Measurements Chambers AV/MV Label Value Normal Value Label Value Normal Value LVOT Vmax 0.49 m/s (0.7m/s - 1.1m/s) MV VTI 22.2 cm LVOTd 2 cm (1.9cm - 2.1cm) MVA D (continuity eq.) 1.4 cm2 LVOT VTI 10.2 cm (18cm - 22cm) MV PGmax 3 mmHg LVOT PGmean 0 mmHg MV PGmean 1 mmHg LVOT Vmean 0.3 m/s MV Alison 3.7 cm MR Reg. Volume 35 ml MR Reg. Fraction 15 % MR Vmax 5.48 m/s MR VTI 207 cm MR (ERO) 0.17 cm2 MR PISA Radius 0.7 cm MR PISA Alias V. 30.8 cm/s Conclusions 1. Severely diminished LV systolic function with an ejection fraction of 30%. Severe inferior hypokinesis to akinesis. 2. there was no thrombus in left atrial appendage. Negative bubble study 3. Severe mitral regurgitation that is functional and degenerative in etiology. Please see below for details. 4. 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 Patient: KITA CHAN Study Date: 06/03/2018 Page 1 of 2 01:59 PM Findings Left Ventricle: There is severe inferior hypokinesis. The EF is visually estimated to be 30 %. IAS: An agitated saline study was performed and was negative for intracardiac shunting. Mitral Valve: The height from the superior portion of the interatrial septum to the mitral valve coaptation point is 4.4 cm. The PMVL leaflet measures 1.9 cm in length. The A1-P1 segments do not co-apt completely. There is A1 prolapse. A2-P2 do not co-apt completely There is severe mitral regurgitation. The etiology of the MR is functional with some degree of degenerative valve disease. The pulmonary valves have blunted flow. the MR ERO is .35cm2 with MR volume 72 ml and MR Fraction of 30%. . Severe mitral regurgitation. Aortic Valve: Aortic leaflets are normal in appearance and function. No significant aortic valve regurgitation. Tricuspid Valve: Tricuspid valve leaflets are structurally normal. Pulmonic Valve: Pulmonic leaflets are normal in appearance and function. 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 Exam Details Procedure Ordered: NEVILLE (No Signature Object) Patient: KITA CHAN Study Date: 06/03/2018 Page 2 of 2 01:59 PM [id number]
== END 2018-06-03 15:43 | disposition home or self-care (01) ==
LOC: FCATH 12:33
PROVIDERS: ATTEND Internal Medicine Cardiovascular Disease
PROC: B246ZZ4 Ultrasonography of Right and Left Heart, Transesophageal (ICD-10-PCS; principal; 2018-06-03)
DX: I34.0 Nonrheumatic mitral (valve) insufficiency (principal); I25.5 Ischemic cardiomyopathy; I25.10 Atherosclerotic heart disease of native coronary artery without angina pectoris; I25.2 Old myocardial infarction; F41.9 Anxiety disorder, unspecified; F32.9 Major depressive disorder, single episode, unspecified; N18.9 Chronic kidney disease, unspecified; I12.9 Hypertensive chronic kidney disease with stage 1 through stage 4 chronic kidney disease, or unspecified chronic kidney disease; Z95.810 Presence of automatic (implantable) cardiac defibrillator; Z95.1 Presence of aortocoronary bypass graft
CPT/HCPCS: J2001; J2704

== ENCOUNTER 2018-08-08 14:20 | Emergency (ER) | payer OTHER, MEDICAID | END 2018-08-08 15:32 | disposition home or self-care (01) ==